=== PATIENT | male | born 1960 | race Caucasian/White ===

== ENCOUNTER 2018-06-21 16:45 | Emergency (ER) | payer MEDICAID ==
[~2018-06-21] VITALS: Ht 177.8 cm; Wt 66.7 kg
--- NOTE | 2018-06-21 17:03 | NUR ---
PT BIBSELF C/O COUGH X 3 WEEKS. "FLU LIKE SYMPTOMS AND SOB" PER PT. PT IS ON MONITOR IN BED 1. PT AOX4. WILL CONTINUE TO MONITOR.
[2018-06-21] MEDS ORDERED: IV NS 0.9% 500 ML BAG IV ONE (17:30)
[2018-06-21] MEDS ORDERED: ALBUTEROL FS 2.5 MG/3 ML VIAL.NEB CONTNEB ONE (17:30)
[2018-06-21] MEDS ORDERED: methylPREDNISolone SOD SUCC 125 MG/2ML VIAL IV ONE (17:30)
[2018-06-21] MEDS ORDERED: IPRATROPIUM NEB FS 0.5 MG/2.5 ML AMPUL.NEB NEB ONE (17:30)
--- NOTE | 2018-06-21 17:40 | NUR ---
RADIOLOGY AT BEDSIDE FOR XRAY
[2018-06-21 17:42] LABS: BASOPHILS % (AUTO) 0.7 % (0.0-2.0); EOSINOPHILS % (AUTO) 2.1 % (0.0-6.0); HEMATOCRIT 41 % (39-51); HEMOGLOBIN 13.9 g/dL (13.5-17.5); LYMPHOCYTES # (AUTO) 2.4 /CMM (0.8-4.8); LYMPHOCYTES % (AUTO) 37.9 % (20.0-44.0); MEAN CORPUSCULAR HGB CONC 34 g/dl (31.0-36.0); MEAN CORPUSCULAR VOLUME 96 fL (80-96); MONOCYTES # (AUTO) 0.4 /CMM (0.1-1.30); MONOCYTES % (AUTO) 6.2 % (2.0-12.0); NEUTROPHILS # (AUTO) 3.3 /CMM (1.8-8.9); NEUTROPHILS % (AUTO) 53.1 % (43.0-81.0); PLATELET COUNT (AUTO) 286 /CMM (150-450); RED BLOOD CELL COUNT(AUTO) 4.26 MIL/uL (4.5-6.0); WHITE BLOOD COUNT (AUTO) 6.3 K/uL (4.3-11.0)
[2018-06-21] MEDS ORDERED: methylPREDNISolone SOD SUCC 125 MG/2ML VIAL ONE (17:45)
[2018-06-21] MEDS ORDERED: ALBUTEROL FS 2.5 MG/3 ML VIAL.NEB ONE (17:47)
[2018-06-21] MEDS ORDERED: IPRATROPIUM NEB FS 0.5 MG/2.5 ML AMPUL.NEB ONE (17:48)
--- NOTE | 2018-06-21 17:49 | NUR ---
RT AT BEDSIDE
[2018-06-21 17:50] LABS: CALCIUM, SERUM 8.5 mg/dL (8.5-10.1); CREATININE 0.9 mg/dL (0.6-1.3); POTASSIUM 3.6 mmol/L (3.5-5.1)
[2018-06-21 17:56] LABS: ALBUMIN 3.1 g/dL (3.4-5.0); BILIRUBIN,DIRECT 0.1 mg/dL (0.0-0.2); BILIRUBIN,TOTAL 0.3 mg/dL (0.2-1.0); TOTAL PROTEIN, SERUM 6.6 g/dL (6.4-8.2)
[2018-06-21 18:23] LABS: ABG OXYGEN SATURATION 94.3 % (92.0-98.5); ABG PCO2 48.3 mmHg (35.0-45.0); ABG PH 7.405 (7.350-7.450); ABG PO2 74.2 mmHg (75.0-100.0); AaDO2 17.7 mmHg; COHb 3.2 % (0.5-1.5); MetHb 1.6 % (0.0-1.5); O2Hb 89.8 % (94.0-97.0); SITE, ABG Right Radial; VENT MODE, BG RA
--- NOTE | 2018-06-21 18:54 | NUR ---
Patient is resting comfortably in bed with eyes closed. Easily aroused. VSS
--- NOTE | 2018-06-21 19:45 | NUR ---
Received pt from RACHEL Bell. Pt is resting comfortably awaiting to be discharged. VSS, in no respiratory distress.
--- NOTE | 2018-06-21 20:00 | NUR ---
Patient discharged to home in stable condition. Written and verbal after care instructions and prescription given. Patient verbalizes understanding of instruction.IV removed. Catheter intact and site benign. Pressure and 4x4 applied to site. No bleeding noted. Pt ambulatory with a steady gait
[2018-06-21 20:08] VITALS: BP 157/91
== END 2018-06-21 20:09 | disposition home or self-care (01) ==
LOC: ER 16:47
DX: J44.9 Chronic obstructive pulmonary disease, unspecified (principal); E11.9 Type 2 diabetes mellitus without complications; F17.200 Nicotine dependence, unspecified, uncomplicated; Z98.890 Other specified postprocedural states; Z86.018 Personal history of other benign neoplasm
CPT/HCPCS: 36415; 36600; 71045; 80048; 80076; 83605; 84484; 85025; 87081; 93005; 94640 ×2; 96374; 99284; 99406; A4606; J2930; J7040; Z7610

== ENCOUNTER 2018-07-21 18:25 | Emergency (ER) | payer MEDICAID ==
[~2018-07-21] VITALS: Ht 170.2 cm; Wt 58.5 kg
--- NOTE | 2018-07-21 18:38 | NUR ---
called No response
[2018-07-21 18:43] VITALS: BP 132/73
[2018-07-21] MEDS ORDERED: KETOROLAC TROMETHAMINE INJ 30 MG/ML VIAL ONE (19:49)
--- NOTE | 2018-07-21 19:55 | NUR ---
PT LEFT FOR CT VIA WC
[2018-07-21] MEDS ORDERED: KETOROLAC TROMETHAMINE INJ 30 MG/ML VIAL IM ONE (20:00)
--- NOTE | 2018-07-21 20:18 | NUR ---
PT RETURNED FROM CT.
== END 2018-07-21 21:39 | disposition home or self-care (01) ==
LOC: ER 18:31
DX: J44.9 Chronic obstructive pulmonary disease, unspecified (principal); M54.12 Radiculopathy, cervical region; E11.9 Type 2 diabetes mellitus without complications; F17.210 Nicotine dependence, cigarettes, uncomplicated; Z98.890 Other specified postprocedural states; W01.0XXA Fall on same level from slipping, tripping and stumbling without subsequent striking against object, initial encounter; Y93.89 Activity, other specified; Y92.89 Other specified places as the place of occurrence of the external cause; Y99.8 Other external cause status
CPT/HCPCS: 72125; 96372; 99284; A4606; J1885; Z7610